=== PATIENT | male | born 1950 | race Caucasian/White ===

== ENCOUNTER 2023-11-09 17:22 | Emergency (ER) | payer MEDICARE, OTHER ==
[~2023-11-09] VITALS: Ht 175.3 cm; Wt 63.6 kg
[2023-11-09 17:37] VITALS: TEMP 97.8
[2023-11-09] MEDS: LIDOcaine 1% 30ml preserv. free vial IJ STA (20:27)
[2023-11-09] MEDS: CefTRIAXone 1000mg IM Kit (w/lidocaine diluent) IM ONE (22:17)
[2023-11-09 22:29] VITALS: BP 114/78; PULSE 74; RESP 18; O2SAT 94
== END 2023-11-09 23:02 | disposition home or self-care (01) ==
LOC: ER 17:23
DX: S62.617B Displaced fracture of proximal phalanx of left little finger, initial encounter for open fracture (principal); W23.0XXA Caught, crushed, jammed, or pinched between moving objects, initial encounter; Y93.89 Activity, other specified; Y92.89 Other specified places as the place of occurrence of the external cause; Y99.8 Other external cause status
CPT/HCPCS: 12001; 73120; 96372; 99284; J0696; J7030; A6446; A6449

== ENCOUNTER 2024-05-05 20:07 | Inpatient (IN) | payer OTHER, MEDICARE ==
[~2024-05-05] VITALS: Ht 182.9 cm; Wt 85.0 kg
[2024-05-05 21:48] LABS: BASOPHILS % (AUTO) 0.2 % (0-1); EOSINOPHILS % (AUTO) 0.2 % (0-6); HEMATOCRIT 39.4 % (42.0-52.0); LYMPHOCYTES # (AUTO) 2.6 X10'3 (1.1-4.8); LYMPHOCYTES % (AUTO) 16.7 % (21-51); MEAN CORPUSCULAR HGB CONC 33.1 g/dL (33.0-36.5); MEAN CORPUSCULAR VOLUME 87.6 FL (78-98); MEAN PLATELET VOLUME 7.9 FL (7.4-10.4); MONOCYTES # (AUTO) 1.5 X10'3 (0-0.9); NEUTROPHILS # (AUTO) 11.1 X10'3 (1.8-7.7); NEUTROPHILS % (AUTO) 72.9 % (42-75); PLATELET COUNT 232 X10'3 (140-440); RED BLOOD COUNT 4.49 X10'6 (4.70-6.10); RED CELL DISTRIBUTION WIDTH 13.6 % (11.5-14.5); WHITE BLOOD COUNT 15.3 X10'3 (4.5-11.0)
[2024-05-05 22:01] LABS: ALANINE AMINOTRANSFERASE 52 U/L (12-78); ALBUMIN 3.1 G/DL (3.4-5.0); ALBUMIN/GLOBULIN RATIO 0.8 (1.1-1.5); ALKALINE PHOSPHATASE 74 IU/L (46-116); ANION GAP 4 (8-16); ASPARTATE AMINO TRANSFERASE 30 U/L (10-37); BILIRUBIN,TOTAL 0.4 MG/DL (0.1-1.0); BLOOD UREA NITROGEN 16 MG/DL (7-18); CALCIUM 8.6 MG/DL (8.5-10.1); CHLORIDE 99 MMOL/L (99-107); CREATININE 0.94 MG/DL (0.60-1.10); GLUCOSE 135 MG/DL (70-104); POTASSIUM 4.9 MMOL/L (3.5-5.1); SODIUM 134 MMOL/L (135-145); TOTAL CARBON DIOXIDE 30.8 MMOL/L (24-32); TOTAL PROTEIN 7.1 G/DL (6.4-8.2); eCRCL 75 ML/MIN; eGFR 78 ML/MIN
[2024-05-06] VITALS (26 sets, daily range): BP systolic 106–148; BP diastolic 67–95; PULSE 76–114; RESP 12–18; TEMP 97.3–98.1; O2SAT 93–99
[2024-05-06] MEDS ORDERED: magnesium sulf-water 4G/100mL 100 ML IV PRN (00:50)
[2024-05-06] MEDS: normal saline 1000ml 1,000 ML IV SCH (00:50)
[2024-05-06] MEDS ORDERED: morphine 2 MG/ML inj. syringe IV PRN ×3 (00:50→13:35)
[2024-05-06] MEDS ORDERED: ondansetron/PF 4mg/2ml inj IV PRN ×2 (00:50→13:35)
[2024-05-06] MEDS ORDERED: acetaminophen 325mg tablet PO PRN (00:50)
[2024-05-06] MEDS ORDERED: potassium Cl 40MEQ/1/2NS 520ml 520 ML IV PRN (00:50)
[2024-05-06] MEDS ORDERED: HYDROmorphone/PF 0.2 MG/ML SYRINGE IV PRN (00:50)
[2024-05-06] MEDS ORDERED: potassium Cl 20 mEq SR tablet PO PRN ×2 (00:50)
[2024-05-06] MEDS ORDERED: magnesium Cl slow-release 64mg tablet PO PRN (00:50)
[2024-05-06] MEDS ORDERED: magnesium hydroxide 30ml (MOM) UD suspension PO PRN (00:50)
[2024-05-06] MEDS ORDERED: magnesium sulf-water 2g/50mL 50 ML IV PRN (00:50)
[2024-05-06] MEDS ORDERED: mag hydrox/Alum hydrox/simeth 30ml oral suspension PO PRN (00:50)
[2024-05-06] MEDS ORDERED: ipratropium/albuterol 3ml nebule NEB PRN (01:35)
[2024-05-06] MEDS ORDERED: ipratropium/albuterol 3ml nebule NEB SCH (03:00)
[2024-05-06 07:02] LABS: MAGNESIUM 2.3 MG/DL (1.5-2.4)
[2024-05-06 07:22] LABS: HEMOGLOBIN A1C 5.8 % (4.5-6.2)
[2024-05-06] MEDS: heparin, porcine 5000 units/ml vial SQ SCH (08:00)
[2024-05-06] MEDS: K and/or MAG REPLACEMENT MC SCH (08:00)
[2024-05-06] MEDS: docusate sod 100mg capsule PO SCH (08:00)
[2024-05-06] MEDS: HYDROmorphone inj. 0.5 MG/0.5 ML DISP.SYRIN IV PRN (10:39)
[2024-05-06] MEDS: CefTRIAXone/D5W-Rocephin 1gm 50 ML IV SCH (11:30)
[2024-05-06 12:36] LABS: BILIRUBIN,URINE NEGATIVE (Neg); CLARITY,URINE TURBID (Clear); COLOR,URINE YELLOW (Yellow); GLUCOSE, URINE NEGATIVE (Neg); KETONES,URINE NEGATIVE (Neg); LEUKOCYTE ESTERASE ,URINE SMALL (Neg); NITRITES, URINE POSITIVE (Neg); OCCULT BLOOD,URINE TRACE-INTACT (Neg); PROTEIN,URINE TRACE mg/dl (Neg)
[2024-05-06 12:46] LABS: UA COLLECTION TYPE FOLEY CATH
[2024-05-06 12:47] LABS: BACTERIA,URINE 4+ /HPF (Neg); SQUAMOUS EPITHELIAL CELL,UR FEW /LPF (FEW); TRANSITIONAL EPI CELLS,URINE FEW /HPF; WBC CLUMPS,URINE FEW /HPF (NEGATIVE); WBC,URINE TNTC /HPF (0-4)
[2024-05-06 12:49] LABS: AMORPHOUS URATES 1+
[2024-05-06] MEDS ORDERED: enalaprilat dihydrate 2.5mg/2ml vial IV PRN (13:35)
[2024-05-06] MEDS ORDERED: morphine 4 MG/ML inj SYRINge IV PRN (13:35)
[2024-05-06] MEDS ORDERED: meperidine/PF 25mg/ml syringe IV PRN ×3 (13:35)
[2024-05-06] MEDS ORDERED: proCHLORperazine 10 MG/2 ml inj IV PRN (13:35)
[2024-05-06] MEDS: ringers solution, lacted 1,000 ML IV SCH (13:35)
[2024-05-06] MEDS ORDERED: labetalol 20mg/4ml (5mg/ml) syringe IV PRN (13:35)
[2024-05-06 14:22] LABS: INR 1.1 INR; PRE OP PARTIAL THROMB. TIME 27 SECONDS (22-32); PROTHROMBIN TIME 11.5 SECONDS (9.0-12.0)
[2024-05-06] MEDS ORDERED: fentaNYL/PF 50MCG/1 ML 2ML syringe ONE ×2 (15:09→15:46)
[2024-05-06] MEDS ORDERED: propofol inj 20 ML IV ONE (15:10)
[2024-05-06] MEDS ORDERED: sevoflurane 250ml liquid IH ONE (15:12)
[2024-05-06] MEDS ORDERED: ceFAZolin 1000mg inj ONE ×2 (15:28)
[2024-05-06] MEDS: tamsulosin 0.4mg capsule PO SCH (19:51)
[2024-05-06] MEDS: CefTRIAXone 2gm/D5W 50ml BAG 50 ML IV SCH (20:05)
[2024-05-07] VITALS (11 sets, daily range): BP systolic 96–123; BP diastolic 55–68; PULSE 61–98; RESP 14–22; TEMP 97.4–98.7; O2SAT 90–97
[2024-05-07] MEDS ORDERED: cefazolin 2gm/D5W 100mL 100 ML IV SCH
[2024-05-07] MEDS ORDERED: DIVA125T31 PO ×2 (02:31→02:51)
[2024-05-07] MEDS ORDERED: FINA5TAB11 PO ×2 (02:33→02:51)
[2024-05-07] MEDS ORDERED: POLY17PO10 PO ×2 (02:35→02:53)
[2024-05-07] MEDS ORDERED: QUET-1 PO ×3 (02:36→02:55)
[2024-05-07] MEDS ORDERED: QUET200T PO (02:56)
[2024-05-07 06:40] LABS: BASOPHILS # (AUTO) 0.1 X10'3 (0-0.2); BASOPHILS % (AUTO) 0.4 % (0-1); EOSINOPHILS # (AUTO) 0.1 X10'3 (0-0.9); EOSINOPHILS % (AUTO) 0.9 % (0-6); HEMOGLOBIN 10.3 g/dl (14.0-17.9); LYMPHOCYTES # (AUTO) 3.1 X10'3 (1.1-4.8); LYMPHOCYTES % (AUTO) 25.2 % (21-51); MEAN CORPUSCULAR HEMOGLOBIN 29.4 PG (27.0-31.0); MEAN CORPUSCULAR HGB CONC 33.3 g/dL (33.0-36.5); MEAN CORPUSCULAR VOLUME 88.3 FL (78-98); MEAN PLATELET VOLUME 8.1 FL (7.4-10.4); MONOCYTES # (AUTO) 1.9 X10'3 (0-0.9); MONOCYTES % (AUTO) 15.1 % (2-12); NEUTROPHILS # (AUTO) 7.2 X10'3 (1.8-7.7); NEUTROPHILS % (AUTO) 58.4 % (42-75); PLATELET COUNT 212 X10'3 (140-440); RED BLOOD COUNT 3.51 X10'6 (4.70-6.10); RED CELL DISTRIBUTION WIDTH 13.6 % (11.5-14.5); WHITE BLOOD COUNT 12.4 X10'3 (4.5-11.0)
[2024-05-07 06:46] LABS: ALANINE AMINOTRANSFERASE 71 U/L (12-78); ALBUMIN 2.7 G/DL (3.4-5.0); ALBUMIN/GLOBULIN RATIO 0.8 (1.1-1.5); ALKALINE PHOSPHATASE 67 IU/L (46-116); ANION GAP 6 (8-16); ASPARTATE AMINO TRANSFERASE 45 U/L (10-37); BILIRUBIN,TOTAL 0.6 MG/DL (0.1-1.0); BLOOD UREA NITROGEN 18 MG/DL (7-18); BUN/CREATININE RATIO 23.4 (10.0-20.0); CALCIUM 7.8 MG/DL (8.5-10.1); CHLORIDE 104 MMOL/L (99-107); CREATININE 0.77 MG/DL (0.60-1.10); GLUCOSE 119 MG/DL (70-104); MAGNESIUM 2.2 MG/DL (1.5-2.4); POTASSIUM 4.1 MMOL/L (3.5-5.1); SODIUM 139 MMOL/L (135-145); TOTAL PROTEIN 6.3 G/DL (6.4-8.2); eCRCL 91 ML/MIN; eGFR > 90 ML/MIN
[2024-05-07 09:55] LABS: PLATELET ESTIMATE NORMAL; TOTAL CELLS COUNTED 100
[2024-05-07] MEDS: aspirin 325mg tablet PO SCH (11:15)
[2024-05-07] MEDS: quetiapine 100mg tablet PO SCH ×2 (11:15→21:06)
[2024-05-07] MEDS: finasteride 5mg tablet PO ONE (11:16)
[2024-05-07] MEDS ORDERED: divalproex sod 125mg tablet.DR PO SCH (21:00)
[2024-05-07] MEDS ORDERED: divalproex sod 125mg sprinkle cap PO SCH (22:12)
[2024-05-07] MEDS: divalproex sod 125mg sprinkle cap PO SCH (22:33)
[2024-05-08 05:46] LABS: BASOPHILS # (AUTO) 0.1 X10'3 (0-0.2); BASOPHILS % (AUTO) 0.5 % (0-1); EOSINOPHILS # (AUTO) 0.2 X10'3 (0-0.9); EOSINOPHILS % (AUTO) 2.1 % (0-6); HEMATOCRIT 24.4 % (42.0-52.0); HEMOGLOBIN 8.3 g/dl (14.0-17.9); LYMPHOCYTES # (AUTO) 2.9 X10'3 (1.1-4.8); MEAN CORPUSCULAR HEMOGLOBIN 29.9 PG (27.0-31.0); MONOCYTES # (AUTO) 1.4 X10'3 (0-0.9); MONOCYTES % (AUTO) 13.4 % (2-12); PLATELET COUNT 193 X10'3 (140-440); RED BLOOD COUNT 2.78 X10'6 (4.70-6.10); RED CELL DISTRIBUTION WIDTH 13.1 % (11.5-14.5); WHITE BLOOD COUNT 10.6 X10'3 (4.5-11.0)
[2024-05-08 06:00] VITALS: BP 101/60; PULSE 74; RESP 18; TEMP 98.4; O2SAT 95
[2024-05-08 06:07] LABS: ALANINE AMINOTRANSFERASE 59 U/L (12-78); ALBUMIN 2.2 G/DL (3.4-5.0); ALBUMIN/GLOBULIN RATIO 0.6 (1.1-1.5); ALKALINE PHOSPHATASE 54 IU/L (46-116); ANION GAP 2 (8-16); ASPARTATE AMINO TRANSFERASE 43 U/L (10-37); BILIRUBIN,TOTAL 0.4 MG/DL (0.1-1.0); BLOOD UREA NITROGEN 18 MG/DL (7-18); BUN/CREATININE RATIO 24.3 (10.0-20.0); CALCIUM 7.2 MG/DL (8.5-10.1); CHLORIDE 105 MMOL/L (99-107); CREATININE 0.74 MG/DL (0.60-1.10); GLUCOSE 118 MG/DL (70-104); MAGNESIUM 2.1 MG/DL (1.5-2.4); POTASSIUM 3.7 MMOL/L (3.5-5.1); SODIUM 138 MMOL/L (135-145); TOTAL CARBON DIOXIDE 31.2 MMOL/L (24-32); TOTAL PROTEIN 5.6 G/DL (6.4-8.2); eCRCL 95 ML/MIN; eGFR > 90 ML/MIN
[2024-05-08 07:46] VITALS: RESP 14; O2SAT 95
[2024-05-08] MEDS: finasteride 5mg tablet PO SCH (08:00)
[2024-05-08 10:00] VITALS: BP 96/46; PULSE 85; RESP 16; TEMP 98.1; O2SAT 92
[2024-05-08] MEDS ORDERED: HYDROcodone/acetaminophen 5mg/325mg tablet PO PRN (10:20)
[2024-05-08 18:00] VITALS: BP 110/61; PULSE 83; RESP 20; TEMP 98.2; O2SAT 94
[2024-05-08 19:58] VITALS: PULSE 74; RESP 21; O2SAT 93
[2024-05-08 22:00] VITALS: BP 98/62; PULSE 94; RESP 18; TEMP 97.9; O2SAT 94
[2024-05-09] VITALS (7 sets, daily range): BP systolic 102–139; BP diastolic 54–73; PULSE 59–78; RESP 16–18; TEMP 97.2–98; O2SAT 89–95
[2024-05-09 07:39] LABS: BASOPHILS % (AUTO) 0.5 % (0-1); EOSINOPHILS # (AUTO) 0.3 X10'3 (0-0.9); EOSINOPHILS % (AUTO) 3.6 % (0-6); HEMATOCRIT 22.8 % (42.0-52.0); HEMOGLOBIN 7.5 g/dl (14.0-17.9); LYMPHOCYTES # (AUTO) 2.8 X10'3 (1.1-4.8); LYMPHOCYTES % (AUTO) 30.6 % (21-51); MEAN CORPUSCULAR HEMOGLOBIN 29.5 PG (27.0-31.0); MEAN CORPUSCULAR HGB CONC 33.1 g/dL (33.0-36.5); MEAN CORPUSCULAR VOLUME 89.1 FL (78-98); MEAN PLATELET VOLUME 7.8 FL (7.4-10.4); MONOCYTES # (AUTO) 1.2 X10'3 (0-0.9); MONOCYTES % (AUTO) 12.9 % (2-12); NEUTROPHILS # (AUTO) 4.8 X10'3 (1.8-7.7); NEUTROPHILS % (AUTO) 52.4 % (42-75); PLATELET COUNT 235 X10'3 (140-440); RED BLOOD COUNT 2.55 X10'6 (4.70-6.10); RED CELL DISTRIBUTION WIDTH 13.3 % (11.5-14.5); WHITE BLOOD COUNT 9.1 X10'3 (4.5-11.0)
[2024-05-09] MEDS: HYDROcodone/acetaminophen 10/325mg tab PO PRN (07:42)
[2024-05-09 08:18] LABS: ALANINE AMINOTRANSFERASE 44 U/L (12-78); ALBUMIN 2.1 G/DL (3.4-5.0); ALBUMIN/GLOBULIN RATIO 0.6 (1.1-1.5); ALKALINE PHOSPHATASE 53 IU/L (46-116); ANION GAP 5 (8-16); ASPARTATE AMINO TRANSFERASE 34 U/L (10-37); BILIRUBIN,TOTAL 0.6 MG/DL (0.1-1.0); BLOOD UREA NITROGEN 12 MG/DL (7-18); BUN/CREATININE RATIO 17.4 (10.0-20.0); CALCIUM 7.4 MG/DL (8.5-10.1); CHLORIDE 106 MMOL/L (99-107); CREATININE 0.69 MG/DL (0.60-1.10); GLUCOSE 110 MG/DL (70-104); MAGNESIUM 2.1 MG/DL (1.5-2.4); POTASSIUM 3.6 MMOL/L (3.5-5.1); SODIUM 140 MMOL/L (135-145); TOTAL CARBON DIOXIDE 28.6 MMOL/L (24-32); TOTAL PROTEIN 5.5 G/DL (6.4-8.2); eCRCL 102 ML/MIN; eGFR > 90 ML/MIN
[2024-05-10 06:00] VITALS: BP 106/53; PULSE 79; RESP 18; TEMP 98.4; O2SAT 94
[2024-05-10 06:33] LABS: BASOPHILS % (AUTO) 0.5 % (0-1); EOSINOPHILS # (AUTO) 0.4 X10'3 (0-0.9); EOSINOPHILS % (AUTO) 4.3 % (0-6); HEMATOCRIT 23.9 % (42.0-52.0); HEMOGLOBIN 8.1 g/dl (14.0-17.9); LYMPHOCYTES # (AUTO) 2.7 X10'3 (1.1-4.8); LYMPHOCYTES % (AUTO) 31.4 % (21-51); MEAN CORPUSCULAR HEMOGLOBIN 30.3 PG (27.0-31.0); MEAN CORPUSCULAR HGB CONC 33.9 g/dL (33.0-36.5); MEAN CORPUSCULAR VOLUME 89.3 FL (78-98); MEAN PLATELET VOLUME 7.1 FL (7.4-10.4); MONOCYTES # (AUTO) 1.2 X10'3 (0-0.9); MONOCYTES % (AUTO) 14.2 % (2-12); NEUTROPHILS # (AUTO) 4.3 X10'3 (1.8-7.7); NEUTROPHILS % (AUTO) 49.6 % (42-75); PLATELET COUNT 299 X10'3 (140-440); RED BLOOD COUNT 2.67 X10'6 (4.70-6.10); RED CELL DISTRIBUTION WIDTH 13.2 % (11.5-14.5); WHITE BLOOD COUNT 8.7 X10'3 (4.5-11.0)
[2024-05-10 06:51] LABS: ALANINE AMINOTRANSFERASE 64 U/L (12-78); ALBUMIN 2.1 G/DL (3.4-5.0); ALBUMIN/GLOBULIN RATIO 0.6 (1.1-1.5); ALKALINE PHOSPHATASE 66 IU/L (46-116); ANION GAP 3 (8-16); ASPARTATE AMINO TRANSFERASE 46 U/L (10-37); BILIRUBIN,TOTAL 0.8 MG/DL (0.1-1.0); BLOOD UREA NITROGEN 12 MG/DL (7-18); CALCIUM 7.7 MG/DL (8.5-10.1); CHLORIDE 105 MMOL/L (99-107); CREATININE 0.75 MG/DL (0.60-1.10); GLUCOSE 110 MG/DL (70-104); MAGNESIUM 2.1 MG/DL (1.5-2.4); POTASSIUM 3.9 MMOL/L (3.5-5.1); SODIUM 139 MMOL/L (135-145); TOTAL CARBON DIOXIDE 31.5 MMOL/L (24-32); TOTAL PROTEIN 5.8 G/DL (6.4-8.2); eCRCL 93 ML/MIN; eGFR > 90 ML/MIN
[2024-05-10 08:00] VITALS: RESP 18; O2SAT 94
[2024-05-10] MEDS: normal saline 1000ml 1,000 ML IV SCH (09:39)
[2024-05-10 10:00] VITALS: BP 108/73; PULSE 96; RESP 15; TEMP 97.9; O2SAT 97
[2024-05-10 18:00] VITALS: BP 102/52; PULSE 79; RESP 15; TEMP 97.7; O2SAT 92
[2024-05-10 21:10] VITALS: PULSE 83; RESP 18; O2SAT 99
[2024-05-10 22:00] VITALS: BP 102/54; PULSE 77; RESP 18; TEMP 98.2; O2SAT 91
[2024-05-11 06:00] VITALS: BP 90/52; PULSE 70; RESP 17; TEMP 97.5; O2SAT 96
[2024-05-11 06:50] LABS: ALANINE AMINOTRANSFERASE 93 U/L (12-78); ALBUMIN 1.9 G/DL (3.4-5.0); ALBUMIN/GLOBULIN RATIO 0.5 (1.1-1.5); ALKALINE PHOSPHATASE 75 IU/L (46-116); ANION GAP 3 (8-16); ASPARTATE AMINO TRANSFERASE 63 U/L (10-37); BILIRUBIN,TOTAL 0.7 MG/DL (0.1-1.0); BLOOD UREA NITROGEN 13 MG/DL (7-18); BUN/CREATININE RATIO 17.8 (10.0-20.0); CALCIUM 7.4 MG/DL (8.5-10.1); CHLORIDE 106 MMOL/L (99-107); CREATININE 0.73 MG/DL (0.60-1.10); GLUCOSE 106 MG/DL (70-104); POTASSIUM 3.9 MMOL/L (3.5-5.1); SODIUM 139 MMOL/L (135-145); TOTAL CARBON DIOXIDE 29.6 MMOL/L (24-32); TOTAL PROTEIN 5.6 G/DL (6.4-8.2); eCRCL 96 ML/MIN; eGFR > 90 ML/MIN
[2024-05-11 07:06] LABS: BASOPHILS % (AUTO) 0.4 % (0-1); EOSINOPHILS # (AUTO) 0.4 X10'3 (0-0.9); EOSINOPHILS % (AUTO) 4.7 % (0-6); HEMATOCRIT 24.2 % (42.0-52.0); HEMOGLOBIN 8.1 g/dl (14.0-17.9); LYMPHOCYTES # (AUTO) 2.9 X10'3 (1.1-4.8); LYMPHOCYTES % (AUTO) 31.5 % (21-51); MEAN CORPUSCULAR HEMOGLOBIN 29.5 PG (27.0-31.0); MEAN CORPUSCULAR HGB CONC 33.3 g/dL (33.0-36.5); MEAN CORPUSCULAR VOLUME 88.6 FL (78-98); MEAN PLATELET VOLUME 7.1 FL (7.4-10.4); MONOCYTES # (AUTO) 1.3 X10'3 (0-0.9); MONOCYTES % (AUTO) 14.7 % (2-12); NEUTROPHILS # (AUTO) 4.4 X10'3 (1.8-7.7); NEUTROPHILS % (AUTO) 48.7 % (42-75); PLATELET COUNT 322 X10'3 (140-440); RED BLOOD COUNT 2.73 X10'6 (4.70-6.10); RED CELL DISTRIBUTION WIDTH 13.2 % (11.5-14.5); WHITE BLOOD COUNT 9.1 X10'3 (4.5-11.0)
[2024-05-11 10:00] VITALS: BP 110/55; PULSE 86; RESP 18; TEMP 97.6; O2SAT 93
[2024-05-11 11:33] VITALS: PULSE 89; RESP 18; O2SAT 91
[2024-05-11 18:00] VITALS: BP 110/53; PULSE 82; RESP 17; TEMP 97.9; O2SAT 94
[2024-05-11 22:00] VITALS: BP 114/51; PULSE 61; RESP 16; TEMP 98.3; O2SAT 93
[2024-05-12 06:00] VITALS: BP 101/51; PULSE 112; RESP 18; TEMP 98.3; O2SAT 93
[2024-05-12 08:00] VITALS: RESP 16; O2SAT 95
[2024-05-12 10:40] VITALS: PULSE 86; RESP 18; O2SAT 92
[2024-05-12 11:01] VITALS: RESP 16
== END 2024-05-12 17:04 | DRG 481 ==
LOC: ER 20:08 → ORTHO 4S 05-06 00:46
PROVIDERS: ADMIT Internal Medicine Critical Care Medicine; ATTEND Nurse Practitioner Family
PROC: 0QS736Z Reposition Left Upper Femur with Intramedullary Internal Fixation Device, Percutaneous Approach (ICD-10-PCS; principal; 2024-05-06 15:12)
DX: S72.142A Displaced intertrochanteric fracture of left femur, initial encounter for closed fracture (principal); N39.0 Urinary tract infection, site not specified; R65.10 Systemic inflammatory response syndrome (SIRS) of non-infectious origin without acute organ dysfunction; D64.9 Anemia, unspecified; E11.9 Type 2 diabetes mellitus without complications; E78.5 Hyperlipidemia, unspecified; F03.C0 Unspecified dementia, severe, without behavioral disturbance, psychotic disturbance, mood disturbance, and anxiety; F43.10 Post-traumatic stress disorder, unspecified; F32.9 Major depressive disorder, single episode, unspecified; K21.9 Gastro-esophageal reflux disease without esophagitis; N40.0 Benign prostatic hyperplasia without lower urinary tract symptoms; K58.9 Irritable bowel syndrome, unspecified; K22.70 Barrett's esophagus without dysplasia; Z79.82 Long term (current) use of aspirin; Z88.8 Allergy status to other drugs, medicaments and biological substances; X58.XXXA Exposure to other specified factors, initial encounter; Y93.9 Activity, unspecified; Y92.89 Other specified places as the place of occurrence of the external cause; Y99.8 Other external cause status
CPT/HCPCS: 36415; 71045; 72192; 73140; 73502; 73552; 76000; 76770; 80053; 81001; 82948; 83036; 83605; 83735; 84132; 85007; 85025; 85610; 85730; 87040; 87077; 87081; 87088; 87186; 92508; 92616; 93005; 94760; 97110; 97162; 97530; 99285; A4358; A4615; A4618; A5200; A6213; A7000; C1713; G0378; J0690; J0696; J1171; J1644; J2704; J3010; J7030; J7120

== ENCOUNTER 2024-06-01 10:00 | Emergency (ER) | payer MEDICARE ==
[~2024-06-01] VITALS: Ht 172.7 cm; Wt 84.1 kg
[~2024-06-01 10:00] MED LIST: DIVA125T31 PO; FINA5TAB11 PO; POLY17PO10 PO; QUET-1 PO; QUET200T PO
[2024-06-01 11:12] LABS: BILIRUBIN,URINE NEGATIVE (Neg); CLARITY,URINE CLOUDY (Clear); COLOR,URINE YELLOW (Yellow); GLUCOSE, URINE NEGATIVE (Neg); KETONES,URINE NEGATIVE (Neg); LEUKOCYTE ESTERASE ,URINE MODERATE (Neg); NITRITES, URINE POSITIVE (Neg); OCCULT BLOOD,URINE SMALL (Neg); PH,URINE 5.5 (4.8-8.0); PROTEIN,URINE TRACE mg/dl (Neg)
[2024-06-01] MEDS ORDERED: DULO60CA59 PO (11:14)
[2024-06-01] MEDS ORDERED: PANT40SU2 PO (11:14)
[2024-06-01] MEDS ORDERED: HYDR-3965 PO (11:14)
[2024-06-01] MEDS ORDERED: ASPI-1264 PO (11:14)
[2024-06-01] MEDS ORDERED: SENN-302 PO (11:14)
[2024-06-01] MEDS ORDERED: DOCU100C40 PO (11:14)
[2024-06-01] MEDS ORDERED: ACET325T49 PO (11:14)
[2024-06-01 11:15] LABS: UA COLLECTION TYPE FOLEY CATH
[2024-06-01 11:35] LABS: FINE GRANULAR CAST 0-3 /LPF (NEGATIVE); WBC,URINE TNTC /HPF (0-4)
[2024-06-01 11:36] LABS: MUCUS STRANDS FEW /LPF (Neg); SQUAMOUS EPITHELIAL CELL,UR NONE SEEN /LPF (FEW)
[2024-06-01 11:42] LABS: BACTERIA,URINE 3+ /HPF (Neg); WBC CLUMPS,URINE FEW /HPF (NEGATIVE)
[2024-06-01 11:50] LABS: ALBUMIN 2.6 G/DL (3.4-5.0); ANION GAP 5 (8-16); BLOOD UREA NITROGEN 20 MG/DL (7-18); CALCIUM 8.4 MG/DL (8.5-10.1); CHLORIDE 107 MMOL/L (99-107); CREATININE 0.77 MG/DL (0.60-1.10); GLUCOSE 118 MG/DL (70-104); POTASSIUM 4.2 MMOL/L (3.5-5.1); SODIUM 143 MMOL/L (135-145); TOTAL CARBON DIOXIDE 31.5 MMOL/L (24-32); eCRCL 80 ML/MIN; eGFR > 90 ML/MIN
[2024-06-01 12:11] LABS: BASOPHILS # (AUTO) 0.1 X10'3 (0-0.2); BASOPHILS % (AUTO) 0.6 % (0-1); EOSINOPHILS # (AUTO) 0.2 X10'3 (0-0.9); EOSINOPHILS % (AUTO) 1.8 % (0-6); HEMATOCRIT 34.1 % (42.0-52.0); HEMOGLOBIN 11.3 g/dl (14.0-17.9); LYMPHOCYTES # (AUTO) 2.9 X10'3 (1.1-4.8); MEAN CORPUSCULAR HEMOGLOBIN 28.6 PG (27.0-31.0); MEAN CORPUSCULAR VOLUME 86.5 FL (78-98); MEAN PLATELET VOLUME 7.5 FL (7.4-10.4); MONOCYTES # (AUTO) 1.3 X10'3 (0-0.9); MONOCYTES % (AUTO) 12.1 % (2-12); NEUTROPHILS % (AUTO) 57.5 % (42-75); PLATELET COUNT 427 X10'3 (140-440); RED BLOOD COUNT 3.95 X10'6 (4.70-6.10); WHITE BLOOD COUNT 10.5 X10'3 (4.5-11.0)
[2024-06-01] MEDS ORDERED: AMOX-580 PO (12:13)
[2024-06-01] MEDS ORDERED: RIVA15TA PO (12:13)
[2024-06-01] MEDS: LidoCAINE 2% Topical Jelly 11mL syringe (UROJET) TOP ONE (12:27)
[2024-06-01] MEDS: rivaroxaban 15mg tablet PO STA (12:33)
[2024-06-01] MEDS: amox tr/potassium clavulanate 875/125mg TAB PO ONE (12:33)
[2024-06-01 12:58] VITALS: BP 115/78; PULSE 80; RESP 17; TEMP 98; O2SAT 95
== END 2024-06-01 14:09 ==
LOC: ER 10:00
DX: R60.0 Localized edema (principal); I82.4Y2 Acute embolism and thrombosis of unspecified deep veins of left proximal lower extremity; N39.0 Urinary tract infection, site not specified; G30.8 Other Alzheimer's disease; F02.80 Dementia in other diseases classified elsewhere, unspecified severity, without behavioral disturbance, psychotic disturbance, mood disturbance, and anxiety; Z88.8 Allergy status to other drugs, medicaments and biological substances; Z79.82 Long term (current) use of aspirin; Z79.899 Other long term (current) drug therapy; Z98.890 Other specified postprocedural states
CPT/HCPCS: 36415; 51702; 80048; 81001; 85025; 87077; 87088; 87186; 93005; 93971; 99285; A4340; C1758; J7030; 99284